=== PATIENT | male | born 1965 | race Caucasian/White ===

== ENCOUNTER 2017-01-26 11:09 | Day surgery (SDC) | payer OTHER ==
[~2017-01-26] VITALS: Ht 177.8 cm; Wt 93.9 kg
[~2017-01-26 11:09] MED LIST: 0.9% Sodium Chloride 1,000 ML IV SCH; CEFD300C3 PO; Sodium Chloride LOK Flush 10 mL Syringe IV PRN; fentaNYL-PF 50 mCg/mL 2 mL Inj IVPUSH PRN
[2017-01-26 11:57] VITALS: BP 127/90; PULSE 60; RESP 18; O2SAT 96
[2017-01-26 12:38] VITALS: BP 108/75; PULSE 55; RESP 16; O2SAT 90
[2017-01-26 12:48] VITALS: BP 103/76; PULSE 53; RESP 14; O2SAT 97
[2017-01-26 13:02] VITALS: BP 114/85; PULSE 60; RESP 16; O2SAT 96
--- NOTE | 2017-01-26 23:01 | ENDO ---
[address] [address] ENDOSCOPY PROCEDURE PATIENT: FORTINO BELLAMY : 1965 MR#: [id number] ADMIT: 01/26/2017 JOB ID: [id number] DATE OF SERVICE: 01/26/2017 TYPE OF OPERATION: Colonoscopy. PREOPERATIVE DIAGNOSIS: Constipation. POSTOPERATIVE DIAGNOSIS: Single sigmoid diverticula was seen. ANESTHESIA: Fentanyl 50 mcg, Versed 3 mg IV administered. COMPLICATIONS: None. BLOOD LOSS: Minimal. DESCRIPTION OF PROCEDURE: After risks and benefits were explained to the patient, informed consent was obtained. After anesthesia administered, colonoscope was inserted per the rectum to the cecum. Mucosa carefully examined. Prep of the patient was excellent. After the procedure was done, the scope was withdrawn and procedure terminated. FINDINGS: Upon inspection of the anus, no masses, hemorrhoids, ulcers, or fissures were seen. Throughout the entire examination, there is a single diverticula that was seen in the sigmoid. No polyps or masses seen. Retroflexion was normal. IMPRESSION: Sigmoid diverticula, sigmoid. RECOMMENDATIONS: High-fiber diet. Repeat colonoscopy in 10 years if no family history of colon cancer.
== END 2017-01-26 23:59 | disposition home or self-care (01) ==
LOC: END 11:09
PROVIDERS: ATTEND Internal Medicine Gastroenterology
DX: Z12.11 Encounter for screening for malignant neoplasm of colon (principal); Z80.0 Family history of malignant neoplasm of digestive organs; K57.30 Diverticulosis of large intestine without perforation or abscess without bleeding; K59.00 Constipation, unspecified; M54.42 Lumbago with sciatica, left side; G89.29 Other chronic pain
CPT/HCPCS: G0105; G0500; J2250; J3010; J7030